=== PATIENT | male | born 1950 | race Caucasian/White ===

== ENCOUNTER 2020-07-16 08:12 | Day surgery (SDC) | payer OTHER, BC ==
[2020-07-12 15:32] LABS: Potassium 4.1 mmol/L (3.5-5.1)
[2020-07-12 15:36] LABS: Absolute Lymphocytes (CBC) 3.3 K/uL (0.7-4.9); Basophils % 0.5 % (0-1.3); Hematocrit 40.2 % (39.6-49.0); Lymphocytes % 36.8 % (15.3-44.8); MPV 8.6 fL (7.6-11.3); RBC Red Blood Cell Count 4.49 M/uL (4.33-5.43)
[2020-07-12 15:40] LABS: Protime INR 0.97
--- NOTE | 2020-07-12 15:57 | RAD REPORT ---
EXAM DESCRIPTION: RAD - Chest Pa And Lat (2 Views) - 07/12/2020 3:20 pm CLINICAL HISTORY: PREOP, pending cardiac catheterization COMPARISON: None TECHNIQUE: Frontal and lateral views of the chest were obtained. FINDINGS: The lungs are clear of focal abnormality. Interstitial markings are mildly prominent damaso eved be baseline. Heart size is normal and central vasculature is within normal limits. No pleural e ffusion or pneumothorax seen. No acute bony finding noted. No aortic abnormality. IMPRESSION: No acute cardiopulmonary process.
--- NOTE | 2020-07-13 15:03 | EKG ---
Test Date: 2020-07-12 Test Time: 14:00:26 Systems Admin: MONIQUE MEASUREMENT RESULTS: Intervals: Rate: 68 IN: 184 QRSD: 98 QT: 406 QTc: 431 [place]: P: 43 IN: 184 QRS: -37 T: 27 INTERPRETIVE STATEMENTS: Sinus rhythm with occasional premature ventricular complexes Left axis deviation Abnormal ECG No previous ECG available for comparison Electronically Signed On 07-13-20 15:01:55 CDT by Alex Buckner
[2020-07-16] MEDS ORDERED: NA CHLORIDE 0.9% 500 ML ONE (08:37)
[2020-07-16 08:53] VITALS: BP 144/83; TEMP 96.1; O2SAT 98
== END 2020-07-16 10:30 | disposition home or self-care (01) ==
LOC: CCL 08:12
DX: I20.0 Unstable angina (principal); Z53.8 Procedure and treatment not carried out for other reasons; Z20.822 Contact with and (suspected) exposure to COVID-19
CPT/HCPCS: 93005; 85025; 80048; 36415; 85610; 85730; 71046; U0003; J7040

== ENCOUNTER 2020-07-26 06:15 | Day surgery (SDC) | payer OTHER, BC ==
[2020-07-26] MEDS ORDERED: LIDOCAINE 1% 20 ML MDV ONE (07:00)
[2020-07-26] MEDS ORDERED: HEPA 1000U/500MLS 1,000 UNIT/500 ML BAG IV ONE (07:00)
[2020-07-26] MEDS ORDERED: FENTANYL CITR 100 MCG/2 ML ONE (07:39)
[2020-07-26] MEDS ORDERED: MIDAZOLAM HCL 2 MG/2 ML INJ ONE (07:39)
[2020-07-26] MEDS ORDERED: HEPARIN 5000 UNIT/ML 1 ML VIAL ONE (07:39)
[2020-07-26] MEDS ORDERED: ATROPINE SULF 1 MG/10 ML SYR IV ONE (07:40)
[2020-07-26] MEDS ORDERED: NA CHLORIDE 0.9% 0 ML ONE (07:40)
[2020-07-26 10:01] VITALS: BP 151/82; TEMP 97.1; O2SAT 97
--- NOTE | 2020-07-26 18:30 | OP ---
Surgeon: Alex Buckner MD Precision Lens Technician: Mr. Agustin Smith. The patient will remain in the hospital for 2 hours of bedrest. I will discharge him and I will make followup arrangement after the CD is reviewed. Procedure Performed: Admitted to my service as an outpatient to the lab clerk for heart catheterizati on. Indication: Unstable angina. Mr. Rowell is a 69-year-old male with history of stent 17 years ago in the LAD, hypertension, dyslipidemia, who came in with chest pain to the office and had an abnormal st ress test in May 2020. Procedure In Detail: He was brought to the lab clerk today, prepped and draped in routine sterile fas hion. Given Versed and fentanyl for sedation. Using the standard Seldinger technique, we put a 6-Fr ench sheath in the right common femoral artery after 10 mL of Xylocaine. Angiography there was dago l. He underwent a [employer] to close the case. Kirk catheter left and right were used to do the diagnostic catheterization. He had a normal right coronary artery, was small and nondominant. The c ircumflex was normal. He was very left dominant. He had an 80% to 90% ostial LAD stenosis that was looked very hazy and calcified. Stent in the LAD proximal was patent. No other complications. Blood Loss: 5 mL. Anesthesia: Total conscious sedation was 45 minutes. Postoperative Diagnosis: Severe coronary artery disease. Plan: Plan is to review the film with Cardiovascular Surgery at [facility] in [place] for possible MOE A to the LAD. BILLIE/MARÍA Voice ID: [id number] Report ID: [id number]
== END 2020-07-26 10:15 | disposition home or self-care (01) ==
LOC: CCL 06:15
DX: I25.110 Atherosclerotic heart disease of native coronary artery with unstable angina pectoris (principal); I42.9 Cardiomyopathy, unspecified; I65.23 Occlusion and stenosis of bilateral carotid arteries; I10 Essential (primary) hypertension; I25.2 Old myocardial infarction; E78.2 Mixed hyperlipidemia; K21.9 Gastro-esophageal reflux disease without esophagitis; G45.9 Transient cerebral ischemic attack, unspecified; Z95.5 Presence of coronary angioplasty implant and graft; Z87.891 Personal history of nicotine dependence
CPT/HCPCS: 93454; C1893; J2250; J3010; J1644; J0583

== ENCOUNTER 2022-06-24 06:26 | Day surgery (SDC) | payer OTHER, BC ==
--- NOTE | 2022-06-20 14:07 | RAD REPORT ---
EXAM DESCRIPTION: Clare Montalvo And Noelle (2 Views)06/20/2022 1:56 pm CLINICAL HISTORY: Preop for cardiac catheterization COMPARISON: 2020 FINDINGS: The lungs appear clear of acute infiltrate. The heart is normal size Postsurgical changes involve the chest IMPRESSION: No acute abnormalities displayed
[2022-06-20 14:31] LABS: Absolute Lymphocytes (CBC) 3.5 K/uL (0.7-4.9); Hematocrit 41.6 % (39.6-49.0); Lymphocytes % 40.9 % (15.3-44.8); MCV 91.9 fL (80-100); MPV 9.2 fL (7.6-11.3); RBC Red Blood Cell Count 4.53 M/uL (4.33-5.43)
[2022-06-20 14:34] LABS: Potassium 3.8 mmol/L (3.5-5.1)
[2022-06-20 14:37] LABS: Protime INR 1.02
--- NOTE | 2022-06-23 16:48 | EKG ---
Test Date: 2022-06-20 Test Time: 13:41:19 Setup Operator: KATELIN MEASUREMENT RESULTS: Intervals: Rate: 58 SD: 178 QRSD: 102 QT: 434 QTc: 426 [place]: P: 56 SD: 178 QRS: -10 T: 47 INTERPRETIVE STATEMENTS: Sinus bradycardia Otherwise normal ECG Compared to ECG 07/12/2020 14:00:26 Sinus rhythm no longer present Ventricular premature complex(es) no longer present Left-axis deviation no longer present Electronically Signed On 06-23-22 16:40:09 TIRE MECHANIC by Marvin Christopher
[~2022-06-24 06:26] MED LIST: ATROPINE SULF 1 MG/10 ML SYR IV ONE; FENTANYL CITR 100 MCG/2 ML ONE; HEPA 1000U/500MLS 2,000 UNIT/1,000 ML BAG IV ONE; HEPARIN 10,000 UNIT/10 ML VIAL IV ONE; LIDOCAINE 1% 20 ML MDV ONE; MIDAZOLAM HCL 2 MG/2 ML INJ ONE
[2022-06-24] MEDS ORDERED: NA CHLORIDE 0.9% 500 ML ONE (06:30)
[2022-06-24 09:36] VITALS: BP 134/74; O2SAT 100
--- NOTE | 2022-06-24 13:07 | OP ---
Date of Procedure: 06/24/2022 Surgeon: GIANNI MORALEZ Procedures Performed: 1.Selective coronary angiogram with bypass graft study. 2.Left heart catheterization. Indication: Abnormal stress test. Access: Right femoral artery 6-Cambodian closed with 6-Cambodian Angio-Seal. Complications: None. Bleeding: Less than 20 mL. Anesthesia: Total sedation time was 30 minutes. Used fentanyl and Versed. Description Of Procedure: After risks, benefits, alternatives were explained, the patient agreed to the procedure and signed informed consent. The patient was brought into the cardiac catheterization laboratory, prepped and draped in the usual sterile fashion. Then, I accessed the right femoral tina ry using micropuncture kit, fluoroscopy, and ultrasound guidance, placed a 6-Cambodian [place] sheath a nd took 6-Cambodian JL4 catheter into the aortic root, engaged left main, took standard views and then e xchanged over J-wire to a 6-Cambodian JR4 catheter, engaged the RCA and SVG to the left circumflex and t he RINALDI to LAD and took standard views. Catheter then was advanced over the wire into the LV, measur ed the LVEDP and pullback did not record any gradient. Then, I removed the catheter and sheath, plac ed 6-Cambodian Angio-Seal for closure with good hemostasis. Findings: 1.Left main; diffuse 50% to 60% stenosis. 2.LAD; has ostial 80% and then patent stent, then diffuse 20% to 30% stenosis. 3.Left circumflex; large and dominant with mid 60% stenosis and then distally diffuse 30% to 40% stephanie nosis. 4.RCA; small, nondominant with luminal irregularities. Graft Study: 1.Patent SVG to left circumflex. 2.Patent RINALDI to LAD. 3.Elevated LVEDP at 15 mmHg. Conclusion: 1.Severe tanana coronary artery disease with patent RINALDI to LAD and SVG to the left circumflex and R CA small and nondominant. 2.Elevated LVEDP. Recommendations: Continue medical management and diuretics. SR/MODL Voice ID: [id number] Report ID: [id number]
== END 2022-06-24 09:37 | disposition home or self-care (01) ==
LOC: CCL 06:26
PROVIDERS: ATTEND Internal Medicine
DX: I25.10 Atherosclerotic heart disease of native coronary artery without angina pectoris (principal); I10 Essential (primary) hypertension; E78.5 Hyperlipidemia, unspecified; I25.2 Old myocardial infarction; I65.23 Occlusion and stenosis of bilateral carotid arteries; K21.9 Gastro-esophageal reflux disease without esophagitis; Z95.1 Presence of aortocoronary bypass graft; Z95.5 Presence of coronary angioplasty implant and graft; Z87.891 Personal history of nicotine dependence; Z79.82 Long term (current) use of aspirin; Z79.899 Other long term (current) drug therapy
CPT/HCPCS: 93005; 85025; 80048; 36415; 85610; 85730; 71046; 93459; 76937; C1893; C1760; Q9967; G0269; J2001; J2250; J3010; J7040; J0461

== ENCOUNTER 2024-02-13 13:26 | Emergency (ER) | payer OTHER, BC ==
--- OUTSIDE RECORDS SUMMARY | 2024-02-13 13:29 | XMS REPORT | Clinical Summary ---
Author Name Unknown Organization [facility] Address [address] [place] [address] Care Team Providers Care Robotics Software Engineer Name Role Phone Bettie Giang MD Unavailable [phone] Rachell Arreguin Primary Care Provider [phone] Chris Blackwood MD Unavailable [phone] Allergies No known active allergies Medications Medication Sig Dispensed Refills Start Date End Date Status acetaminophen (TYLENOL) 325 mg tablet Take 2 tablets (650 mg) by mouth every 6 (six) hours as needed for mild pain. 02/04/2021 Active amLODIPine (NORVASC) 5 mg tabletIndications :hypertension Take 1 tablet (5 mg) by mouth daily. 01/22/2023 Active aspirin 81 mg EC tablet Take 1 tablet (81 mg) by mouth daily. Active cholecalciferol, vitamin D3, (VITAMIN D3) 2,000 units tab tablet Take 1 tablet (2,000 Units) by mouth daily. Active clobetasol (TEMOVATE) 0.05% cream Apply 1 application topically to affected area(s) as needed. 02/04/2021 Active glucosamine/condr oitin/kyfy735 (COSAMIN ASU ORAL) Take 1 capsule by mouth twice daily. 07/19/2022 Active losartan (COZAAR) 100 mg tablet Take 1 tablet (100 mg) by mouth daily. 12/28/2022 Active metoprolol succinate 50 mg CSpX Take 1 tablet by mouth daily. Active multivitamin (THERAGRAN) tablet Take 1 tablet by mouth daily. Active nystatin (MYCOSTATIN) 100,000 units/g cream Apply topically to affected area(s) as needed. Active omega 7-mrb-kzd-fish oil 1,000 mg (120 mg-180 mg) cap daily. Active omeprazole (PriLOSEC) 20 mg capsule every morning before breakfast. 12/26/2022 Active rosuvastatin (CRESTOR) 40 mg tablet Take 1 tablet (40 mg) by mouth at bedtime. 12/27/2022 Active traMADol (ULTRAM) 50 mg tablet Take 1 tablet (50 mg) by mouth every 6 (six) hours as needed. 02/04/2021 Active traZODone (DESYREL) 50 mg tablet Take 1 tablet (50 mg) by mouth at bedtime. 05/31/2020 Active coenzyme Q10 100 mg capsule Take 100 mg by mouth daily. Active zinc gluconate 50 mg tablet Take 1 tablet (50 mg) by mouth daily. Active aflibercept (EYLEA INTRAVITREAL) 1.25 mg by intravitreal route every 30 (thirty) days. Patient taking every 2 months. Next is 02/24/2023 Active omeprazole (PriLOSEC) 40 MG capsuleIndication s:Neuroendocrine tumor Take 1 capsule (40 mg) by mouth every morning before breakfast for 60 days. 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 Neuroendocrine tumor 02/02/2023 Overview: Added automatically from request for surgery [id number] Encounters Date Type Department Care Team Description 4 Orders Only [facility] - Surgical Oncology [address] [place] [address] Main [facility], 7th [place] [address] Jenn Regan APRN Neuroendocrine tumor (Primary Dx) 4 9:30 AM CDT Telemedicine Gastrointestina l Center - Surgical Oncology [facility]5 [facility], 7th Floor [address] [place], [place] [id number] Chris Blackwood MD Neuroendocrine tumor (Primary Dx); Carcinoid tumor, NOS of stomach, NOS 4 6:46 AM CDT - 4 11:59 PM CDT Hospital Encounter Main CT IMAGING [facility] [facility] Main Bldg, 3rd [place] [address] Jenn Regan APRN Carcinoid tumor, NOS of stomach, NOS Discharge Disposition: Home 4 6:31 AM CDT - 4 6:45 AM CDT Hospital Encounter Diagnostic [facility] [address] [place] [address] Main [facility], [place] [address] Jenn Regan, DRY HOUSE OPERATOR Carcinoid tumor, NOS of stomach, NOS Discharge Disposition: Home 4 Prep for Procedure Gastrointestina l Center - Gastroenterolog y, Hepatology & Nutrition [address] [place] [address] Main [facility], 7th [place] [address] Usama Nugent MD History of malignant carcinoid tumor of stomach (Primary Dx) 4 11:16 AM CDT Anesthesia Event Endoscopy Center [address] [place] [address] Main [facility], 5th [place] [address] Kamila Clark MD 4 11:15 AM CDT - 4 12:00 PM CDT Surgery Endoscopy Center [address] [place] [address] Main [facility], 5th [place] [address] Usama Nugent MD UPPER GASTROINTESTINAL ENDOSCOPY OF ESOPHAGUS, STOMACH, AND DUODENUM WITH BIOPSY 4 9:17 AM CDT - 4 12:49 PM CDT Hospital Encounter Endoscopy Center [address] [place] [address], 5th [place] [address] Usama Nugent MD Neuroendocrine tumor Discharge Disposition: Home 4 Travel 4 4:30 PM CDT POEM Appointments Perioperative Evaluation and Management Center [address] [place] [address] Main [facility], 6th [place] [address] Rachell Arreguin PA 4 11:59 PM CDT Anesthesia Event [facility] [address] [place] [address] Main [facility], 6th [place] [address] Lay Patel RN 4 9:00 AM VOLLEYBALL ASSISTANT COACH Consult Gastrointestina l Center - Surgical Oncology [address] [place] [address] Main [facility], 7th [place] [address] Chris Blackwood MD Carcinoid tumor, NOS of stomach, NOS 4 Travel 4 Telephone [facility]astrointestina l Center [address] [place] [address] Main [facility], 7th [place] [address] Laney Saavedra, RN 4 Telephone [facility]astrointestina [facility] Center [address] [place] [address] Main [facility], 7th [place] [address] Laney Saavedra, ELIAN 3 Orders Only Gastrointestina l Center - Gastroenterolog y, Hepatology & Nutrition [address] [place] [address] Main [facility], 7th [place] [address] Usama Nugent MD Carcinoid tumor, NOS of stomach, NOS (Primary Dx) 3 Prep for Procedure Gastrointestina l Center - Gastroenterolog y, Hepatology & Nutrition [address] [place] [address] Main [facility], 7th [place] [address] Usama Nugent MD History of malignant carcinoid tumor of stomach (Primary Dx) 3 7:39 AM VOLLEYBALL ASSISTANT COACH Anesthesia Event Endoscopy Center [address] [place] [address] Main [facility], 5th [place] [address] Belkis Ackerman MD 3 7:20 AM VOLLEYBALL ASSISTANT COACH - 3 9:20 AM VOLLEYBALL ASSISTANT COACH Surgery Endoscopy Center [address] [place] [address] Main [facility], 5th [place] [address] Usama Nugent MD FLEXIBLE ESOPHAGOGASTRODUODENOSCOPY WITH MUCOSAL RESECTION 3 6:17 AM VOLLEYBALL ASSISTANT COACH - 3 10:15 AM VOLLEYBALL ASSISTANT COACH Hospital Encounter Endoscopy Center [address] [place] [address] Main [facility], 5th [place] [address] Usama Nugent MD Neuroendocrine tumor (Primary Dx) Discharge Disposition: Home 3 Travel 3 4:00 PM VOLLEYBALL ASSISTANT COACH POEM Appointments [facility] [address] [place] [address], 6th [place] [address] Rachell Arreguin PA 3 11:59 PM VOLLEYBALL ASSISTANT COACH Anesthesia Event Perioperative [facility] Management [facility] [address] [place] [address], [facility] [place] [address] Kezia Martínez RN after 02/13/2023 Surgical History Surgery Date Site/Laterality Comments APPENDECTOMY 04/20/1975 COLONOSCOPY 06/02/2019 PROSTATE SURGERY 01/19/2008 CORONARY ARTERY BYPASS GRAFT 06/23/2003 KNEE ARTHROPLASTY 03/10/2005 UPPER GASTROINTESTINAL ENDOSCOPY 12/26/2022 SEPTOPLASTY OF NOSE ANGIOPLASTY DC EGD TRANSORAL ENDOSCOPIC MUCOSAL RESECTION 04/06/2023 N/A Procedure: FLEXIBLE ESOPHAGOGASTRODUODENOSCOPY WITH MUCOSAL RESECTION; Surgeon: Usama Nugent MD; Location: MAIN ENDOSCOPY; Service: GASTROENTEROLOGY DC EGD TRANSORAL BIOPSY SINGLE/MULTIPLE 09/25/2023 Esophagus/N/A Procedure: UPPER GASTROINTESTINAL ENDOSCOPY OF ESOPHAGUS, STOMACH, AND DUODENUM WITH BIOPSY; Surgeon: Usama Nugent MD; Location: MAIN ENDOSCOPY; Service: GASTROENTEROLOGY Medical History Medical History Date Comments Myocardial infarction 06/22/2004 Hyperlipidemia Eczema Malignant neoplasm of prostate 01/19/2008 Basal cell carcinoma of skin 04/20/2004 Central retinal vein occlusion - non-ischemic Disorder of coronary artery Hiatal hernia Family History Medical History Relation Name Comments Prostate cancer Father Alexandr Rowell Breast cancer Mother Ruthy Rowlel Lung cancer Mother Ruthy Rowell Relation Name Status Comments Father Alexandr Rowell Mother Ruthy Rowell Social History Tobacco Use Types Packs/Day Years Used Date Smoking Tobacco: Never Smokeless Tobacco: Never Alcohol Use Standard Drinks/Week Comments Never 0 (1 standard drink = 0.6 oz pur e alcohol) Sex and Gender Information Value Date Recorded Sex Assigned at Not on file Gender Identity Not on file Sexual Orientation Not on file Job Start Date Occupation Industry Not on file Not on file Not on file Obstetrics History Last Filed Vital Signs Vital Sign Reading Time Taken Comments Blood Pressure 136/73 09/25/2023 12:15 PM CDT Pulse 65 09/25/2023 12:15 PM CDT Temperature 36.2 C (97.2 F) 09/25/2023 12:10 PM C DT Respiratory Rate 16 09/25/2023 12:15 PM CDT Oxygen Saturation 95% 09/25/2023 12:20 PM CDT Inhaled Oxygen Concentration - - Weight 95.5 kg (210 lb 8.6 oz) 09/25/2023 10:07 AM CDT Height - - Body Mass Index 29.22 01/28/2023 11:26 AM CDT Plan of Treatment Upcoming Encounters Date Type Department Care Team (Latest Contact Info) Description 04/11/2024 6:45 AM VOLLEYBALL ASSISTANT COACH Appointment Diagnostic Laboratory Center [address] [place] [address], [place] [address] Jenn Regan APRN [address] [place] [phone] [email or web address] 04/11/2024 7:20 AM VOLLEYBALL ASSISTANT COACH Hospital Encounter Endoscopy Center [address] [place] [address], 5th [place] [address] Usama Nugent MD [address] [place] [phone] [email or web address] 04/11/2024 7:20 AM VOLLEYBALL ASSISTANT COACH - 04/11/2024 8:00 AM [facility] Surgery Endoscopy Center [address] [place] [address], 5th [place] [address] Usama Nugent MD [address] [place] [phone] [email or web address] UPPER GASTROINTESTINAL ENDOSCOPY OF ESOPHAGUS, STOMACH, AND DUODENUM WITH BIOPSY 04/26/2024 2:30 PM [facility] Telemedicine Gastrointestinal Center - Surgical Oncology [address] [place] [address], 7th [place] [address] Chris Blackwood MD [address] [place] [phone] [email or web address] Scheduled Procedures Name Priority Associated Diagnoses Date/Ti me UPPER GASTROINTESTINAL ENDOSCOPY OF ESOPHAGUS, STOMACH, AND DUODENUM WITH BIOPSY History of malignant carcinoid tumor of stomach 04/11/2024 7:20 AM VOLLEYBALL ASSISTANT COACH Health Maintenance Due Date Last Done Comments COVID-19 Vaccine ( season) 12/20/202310/2020, 05/27/2020 Influenza Vaccine (#1) 2023 01/04/2022, 2020 Pneumococcal Vaccine: 65+ Years Completed 2 Medical Devices Implanted Type Area Breaker Operator Device Identifier Shelf Expiration Date Model / Serial / Lot Implant-04/20/19 21 Implanted:04/2020 (Quantity not on file) Implant Left: Knee Stent-04/20/2003 Implanted:04/2003 (Quantity not on file) Stent Procedures Procedure Name Priority Date/Time Associated Diagnosis Comments CT CHEST ABDOMEN PELVIS W WO CONTRAST Routine 10/08/2023 10:35 AM CDT Carcinoid tumor, NOS of stomach, NOS .CBC Routine 10/08/2023 6:41 AM CDT Carcinoid tumor, NOS of stomach, NOS COMPREHENSIVE METABOLIC PANEL Routine 10/08/2023 6:41 AM CDT Carcinoid tumor, NOS of stomach, NOS COMPLETE BLOOD COUNT W/ DIFFERENTIAL Routine 10/08/2023 6:41 AM CDT Carcinoid tumor, NOS of stomach, NOS GASTRIN LEVEL Routine 10/08/2023 6:41 AM CDT Carcinoid tumor, NOS of stomach, NOS CHROMOGRANIN A Routine 10/08/2023 6:41 AM CDT Carcinoid tumor, NOS of stomach, NOS PATHOLOGY BIOPSY INTERPRETATION Routine 09/25/2023 11:29 AM CDT Neuroendocrine tumor DC EGD TRANSORAL BIOPSY SINGLE/MULTIPLE 09/25/2023 11:06 AM CDT Neuroendocrine tumor Special Needs GENERAL ASSEMBLER INSTALLER CALL COMPLETED 09/22/23TRIAGE RN JAMILA CALL 1--- LVM 09/10/23 PATHOLOGY BIOPSY INTERPRETATION Routine 04/06/2023 8:44 AM VOLLEYBALL ASSISTANT COACH Neuroendocrine tumor DC EGD TRANSORAL ENDOSCOPIC MUCOSAL RESECTION 04/06/2023 7:29 AM VOLLEYBALL ASSISTANT COACH Neuroendocrine tumor after 02/13/2023 Results * CT Chest Abdomen Pelvis with and without Contrast (10/08/2023 10:35 AM CDT) Anatomical Region Laterality Modality Abdomen, Pelvis, Chest Computed Tomography 10/08/2023 7:30 PM CDT Impressions 10/08/2023 8:05 PM CDT No gastric mass or definite metastatic disease identified in the chest, abdomen or pelvis. Calcified right lower lobe pulmonary nodules associated with calcified subcarinal node, likely sequela of granulomatous infection. Several nonspecific punctate pulmonary nodules are probably benign and can be followed. ACTIONABLE ITEMS/RECOMMENDATIONS*: None. *An Actionable Finding is a finding that may be unrelated to the original reason for imaging but potentially actionable, meaning further investigation may be necessary. The Actionable Findings Vigilance Unit (AFVU) assists medical providers with responding to additional radiologic findings that are unexpected and potentially actionable. Narrative 10/08/2023 8:05 PM CDT FULL RESULT: Examination: CT CHEST ABDOMEN PELVIS W WO CONTRAST on 10/08/2023 10:35 AM. Clinical History: Carcinoid tumor, NOS of stomach, NOS. Indication: Gastric neuroendocrine tumor. Comparison: 01/20/2024. Technique: CT CHEST ABDOMEN PELVIS W WO CONTRAST. Findings: CHEST: Lungs and Pleura: No suspicious pulmonary nodule. Several nonspecific sub-5 mm pulmonary nodules are identified in the bilateral upper and left lower lung lobes such as in series 18 image 48, 51, 55, 59, and 87. Multiple calcified pulmonary nodules are identified in the right lower lobe such as in the image 121 of series 18 measuring 1.5 cm, favored to represent granulomatous infection. This is associated with a partially calcified subcarinal node in image 64 series 16 measuring 0.6 x 2.1 cm. No consolidation. No pleural effusion. Cardiomediastinum: The heart is normal in size. No pericardial effusion. Lymph nodes: No lymphadenopathy. ABDOMEN AND PELVIS: Hepatobiliary: No suspicious hepatic lesion. No biliary dilatation. No cholecystitis. Spleen: No splenomegaly. Pancreas: No mass or ductal dilatation. Adrenal Glands: No mass. Kidneys, Ureters, Bladder: No hydronephrosis. No suspicious renal lesion. No bladder mass. Gastrointestinal Tract: No obstruction. No gastric mass is identified. Metallic artifact in the soft tissues adjacent to the terminal ileum in the right lower quadrant may be related to prior surgery. An area of fat necrosis is identified in the ileocolic mesentery in image 132 series 12. Pelvic Organs: No pelvic mass. Prostatectomy. Peritoneum/Retroperitoneum: No ascites. Lymph Nodes: No lymphadenopathy. MUSCULOSKELETAL: No suspicious skeletal lesion. Procedure Note Jose Corado MD - 10/08/2023 FULL RESULT: Examination: CT CHEST ABDOMEN PELVIS W WO CONTRAST on 10/08/2023 10:35AM. Clinical History: Carcinoid tumor, NOS of stomach, NOS. Indication: Gastric neuroendocrine tumor. Comparison: 01/20/2024. Technique: CT CHEST ABDOMEN PELVIS W WO CONTRAST. Findings: CHEST: Lungs and Pleura: No suspicious pulmonary nodule. Several nonspecificsub-5 mm pulmonary nodules are identified in the bilateral upper and leftlower lung lobes such as in series 18 image 48, 51, 55, 59, and 87. Multiple calcified pulmonary nodules are identified in the right lowerlobe such as in the image 121 of series 18 measuring 1.5 cm, favored torepresent granulomatous infection. This is associated with a partiallycalcified subcarinal node in image 64 series 16 measuring 0.6 x 2.1 cm. Noconsolidation. No pleural effusion. Cardiomediastinum: The heart is normal in size. No pericardial effusion. Lymph nodes: No lymphadenopathy. ABDOMEN AND PELVIS: Hepatobiliary: No suspicious hepatic lesion. No biliary dilatation. Nocholecystitis. Spleen: No splenomegaly. Pancreas: No mass or ductal dilatation. Adrenal Glands: No mass. Kidneys, Ureters, Bladder: No hydronephrosis. No suspicious renal lesion. No bladder mass. Gastrointestinal Tract: No obstruction. No gastric mass is identified.Metallic artifact in the soft tissues adjacent to the terminal ileum inthe right lower quadrant may be related to prior surgery. An area of fatnecrosis is identified in the ileocolic mesentery in image 132 [email or web address]. Pelvic Organs: No pelvic mass. Prostatectomy. Peritoneum/Retroperitoneum: No ascites. Lymph Nodes: No lymphadenopathy. MUSCULOSKELETAL: No suspicious skeletal lesion. IMPRESSION: No gastric mass or definite metastatic disease identified in the chest,abdomen or pelvis. Calcified right lower lobe pulmonary nodules associated with calcifiedsubcarinal node, likely sequela of granulomatous infection. Several nonspecific punctate pulmonary nodules are probably benign and canbe followed. ACTIONABLE ITEMS/RECOMMENDATIONS*: None. *An Actionable Finding is a finding that may be unrelated to the originalreason for imaging but potentially actionable, meaning furtherinvestigation may be necessary. The Actionable Findings Vigilance Unit(AFVU) assists medical providers with responding to additional radiologicfindings that are unexpected and potentially actionable. Jenn To DRY HOUSE OPERATOR IM CT ORDERABLES * (ABNORMAL) .CBC (10/08/2023 6:41 AM CDT) White Blood Cell 8.4 4.1 - 10.5 K/uL 10/08/2023 6:48 AM CDT [facility] Red Blood Cell 4.65 4.30 - 6.04 M/uL 10/08/2023 6:48 AM CDT [facility] Hemoglobin 14.9 13.3 - 17.4 g/dL 10/08/2023 6:48 AM CDT [facility] Hematocrit 43.2 39.5 - 51.8 % 10/08/2023 6:48 AM CDT [facility] Mean Cell Volume 93 82 - 99 fL 10/08/2023 6:48 AM CDT [facility] Mean Cell Hemoglobin 32.0 26.6 - 33.2 pg 10/08/2023 6:48 AM CDT [facility] Mean Cell Hemoglobin Concentration 34.5 31.1 - 35.2 g/dL 10/08/2023 6:48 AM CDT [facility] RDW-SD 43.9 37.5 - 49.7 fL 10/08/2023 6:48 AM CDT [facility] Red Cell Diameter Width 12.8 11.6 - 15.5 % 10/08/2023 6:48 AM CDT [facility] Platelet 171 160 - 397 K/uL 10/08/2023 6:48 AM CDT [facility] Mean Platelet Volume 10.6 9.1 - 12.6 fL 10/08/2023 6:48 AM CDT [facility] INRBC 0.0 0.0 - 0.1 /100 WBC 10/08/2023 6:48 AM CDT [facility] Comment: The INRBC (instrument NRBC) value reflects the enumeration of nucleated red blood cells contained in a 200uL sample of whole blood analyzed by the instrument. This value may differ from the NRBC value reported in a manual differential, which is based on a 100 cell differential. Neutrophil % 44.3 43.2 - 72.7 % 10/08/2023 6:48 AM CDT [facility] Lymphocyte % 42.8 16.8 - 46.2 % 10/08/2023 6:48 AM CDT [facility] Monocyte % 7.8 5.1 - 12.5 % 10/08/2023 6:48 AM CDT [facility] Eosinophil % 4.4 0.4 - 6.3 % 10/08/2023 6:48 AM CDT [facility] Basophil % 0.5 0.2 - 1.4 % 10/08/2023 6:48 AM CDT [facility] IGRE % 0.2 0.1 - 1.5 % 10/08/2023 6:48 AM CDT [facility] Comment:The IGRE% includes M etamyelocytes, Myelocytes and Promyelocytes. Neutrophil Abs 3.73 1.95 - 7.25 K/uL 10/08/2023 6:48 AM CDT [facility] Lymphocyte Abs 3.60(H) 1.01 - 3.24 K/uL 10/08/2023 6:48 AM CDT [facility] Monocyte Abs 0.66 0.24 - 0.85 K/uL 10/08/2023 6:48 AM CDT [facility] Eosinophil Abs 0.37 0.02 - 0.50 K/uL 10/08/2023 6:48 AM CDT [facility] Basophil Abs 0.04 0.02 - 0.09 K/uL 10/08/2023 6:48 AM CDT [facility] IG Abs 0.02 0.01 - 0.12 K/uL 10/08/2023 6:48 AM CDT [facility] Blood Peripheral blood specimen / Unknown Venipuncture / Unknown 10/08/2023 6:41 AM CDT 10/08/2023 6:43 AM CDT Jenn To ZAINAB LAB BLOOD ORDERABLES [facility] Unless otherwise noted, all lab tests performed by: Division of Pathology and Laboratory Medicine [facility] [place] [address] * (ABNORMAL) Comprehensive Metabolic Panel (10/08/2023 6:41 AM CDT) Bilirubin Total 0.4 0.0 - 1.2 mg/dL 10/08/2023 7:20 AM CDT [facility] Comment:Indocyanine Green (I CG) may cause falsely elevated bilirubin results. Total and direct bilirubin must not be measured from samples containing indocyanine green. False elevation of total bilirubin can be seen in patients with IgG concentrations above 28 g/L. eGFR 65 >=60 mL/min/1. 73 sq. m 10/08/2023 7:20 AM CDT [facility] Comment: The eGFRcr is calculated with the 2020 CKD-EPI creatinine equation using creatinine, patient's age, and sex for adults 18 years of age and older. Other factors, especially muscle mass, may affect accuracy and need to be considered. According to the Kidney Disease: Improving Global Outcomes (KDIGO) CKD Work Group 2012 Clinical Practice Guideline, chronic kidney disease (CKD) is defined as the abnormalities of kidney structure or function, present for more than 3 months, with implications for health. CKD should be classified by cause, GFR category, and albuminuria category. KDIGO guidelines provide the following GFR categories. Stage / Description / GFR mL/min/1.73 m2: G1* / Normal or high / >= 90 G2* / Mildly decreased / 60-89 G3a / Mildly to moderately decreased / 45-59 G3b / Moderately to severely decreased / 30-44 G4 / Severely decreased / 15-29 G5 / Kidney failure / <15 *In the absence of evidence of kidney damage, neither G1 nor G2 fulfill criteria for CKD. Tot Protein 7.1 6.4 - 8.3 gm/dL 10/08/2023 7:20 AM [facility] Calcium Level Total 9.9 8.2 - 10.2 mg/dL 10/08/2023 7:20 AM [facility] Alkaline Phosphatase 81 40 - 129 U/L 10/08/2023 7:20 AM [facility] Albumin Level 4.6 3.5 - 5.2 gm/dL 10/08/2023 7:20 AM [facility] AST 32 <=40 U/L 10/08/2023 7:20 AM [facility] ALT 35 <=41 U/L 10/08/2023 7:20 AM [facility] Sodium Level 141 136 - 145 mmol/L 10/08/2023 7:20 AM [facility] Potassium Level 4.9(H) 3.4 - 4.5 mmol/L 10/08/2023 7:20 AM [facility] Chloride 104 98 - 107 mmol/L 10/08/2023 7:20 AM [facility] CO2 28 22 - 29 mmol/L 10/08/2023 7:20 AM [facility] Anion Gap 9 4 - 14 mmol/L 10/08/2023 7:20 AM [facility] Creatinine 1.18(H) 0.67 - 1.17 mg/dL 10/08/2023 7:20 AM [facility] BUN 16 6 - 23 mg/dL 10/08/2023 7:20 AM [facility] Glucose Level 105(H) 70 - 99 mg/dL 10/08/2023 7:20 AM [facility] Comment: Effective 11/14/15, the glucose reference intervals have been updated based on [place] [employer] guidelines (Standards of Medical Care in Diabetes 2016. Diabetes Care 2016; 39: S13-S22). Fasting blood glucose: Normal: 70-99 mg/dL Impaired fasting glucose (increased risk for diabetes or pre-diabetes): 100-125 mg/dL Diabetes mellitus: >/=126 mg/dL Random blood glucose: Normal: 70-199 mg/dL Note: Random glucose >100 mg/dL is associated with increased risk for diabetes. Blood Peripheral blood specimen / Unknown Venipuncture / Unknown 10/08/2023 6:41 AM CDT 10/08/2023 6:43 AM CDT Jenn To ZAINAB LAB BLOOD ORDERABLES [facility] Unless otherwise noted, all lab tests performed by: Division of Pathology and Laboratory Medicine [address] [place] [phone] * (ABNORMAL) Chromogranin A (10/08/2023 6:41 AM CDT) Pathologist [facility] Chromogranin A-[place] 1727(H) <93 ng/mL 10/09/2023 10:39 AM CDT [facility] Comment: Impaired renal or hepatic function or treatment with proton pump inhibitors may result in artifactual elevations of Chromogranin A. ADDITIONAL INFORMATION The testing method is a homogeneous time-resolved immunofluorescent assay manufactured by [employer] and performed on the [employer]act Plus. Values obtained with different assay methods or kits may be different and cannot be used interchangeably. Test results cannot be interpreted as absolute evidence for the presence or absence of malignant disease. In some immunoassays, the presence of unusually high concentrations of analyte may result in a high-dose "hook" effect. This may result in a lower or even normal measured analyte concentration. If the reported result is inconsistent with the clinical presentation, the laboratory should be alerted for troubleshooting. For diagnostic purposes, these immunoassay results should always be assessed in conjunction with the patients medical history, clinical examination and other findings. Test Performed by: [address] [address] Regional Forester: Kathryn Short Ph.D.; CLIA# [id number] Blood Peripheral blood specimen / Unknown Venipuncture / Unknown 10/08/2023 6:41 AM CDT 10/08/2023 6:43 AM CDT Jenn To [employer] LAB BLOOD ORDERABLES NOEL DELAROSA * (ABNORMAL) Gastrin Level (10/08/2023 6:41 AM CDT) Gastrin-Belpre 164(H) pg/mL 10/10/2023 10:21 AM CDT NOEL DELAROSA Comment: REFERENCE VALUE <100 Reference ranges valid for >= 8 hour fast. Test Performed by: [facility] [place] [address] Regional Forester: Kathryn Short Ph.D.; CLIA# [id number] Blood Peripheral blood specimen / Unknown Venipuncture / Unknown 10/08/2023 6:41 AM CDT 10/08/2023 6:43 AM CDT Jenn To [facility] LAB BLOOD ORDERABLES [facility] SHAHRZAD DELAROSA * Pathology Biopsy Interpretation (09/25/2023 11:29 AM CDT) Only the most recent of2 resultswithin the time period is included. Pathologist [facility] Submitted Clinical History Neuroendocrine tumor [D3A.8] 09/29/2023 9:17 AM CDT [facility] Diagnosis A: Stomach, scar, biopsy: Oxyntic mucosa with focal atrophy, lamina propria fibrosis, and reactive foveolar changes. No intestinal metaplasia identified. No Helicobacter organisms identified. No neoplasm identified. B: Stomach, antrum, random, biopsy: Antral and transitional mucosa with no significant pathologic changes. C: Stomach, angularis, biopsy: Oxyntic mucosa with focal lamina propria fibrosis. No intestinal metaplasia identified. No Helicobacter organisms identified. D: Stomach, body, lesser curve, biopsy: Oxyntic mucosa with lamina propria fibrosis. No intestinal metaplasia identified. No Helicobacter organisms identified. E: Stomach, body, greater curve, biopsy: Oxyntic mucosa with no significant pathologic changes. F: Stomach, fundus and cardia, biopsy: Cardia mucosa with focal lamina propria fibrosis and reactive foveolar hyperplasia. Oxyntic/fundic mucosa with no significant pathologic changes. No intestinal metaplasia identified. No Helicobacter organisms identified. G: Stomach, polyps, biopsy: Fundic gland polyp(s). 09/29/2023 9:17 AM CDT [facility] Gross Description A: Stomach, gastric scar: Multiple webster-red pieces of tissue measuring 0.7 x 0.5 x 0.1 cm in aggregate, entirely submitted in A1. GM B: Stomach, random antrum: Multiple webster-pink pieces of tissue measuring 0.7 x 0.5 x 0.1 cm in aggregate, entirely submitted in B1. GM C: Stomach, angularis: Multiple webster-pink pieces of tissue measuring 0.6 x 0.5 x 0.1 cm in aggregate, entirely submitted in C1. GM D: Stomach, lesser curve gastric body: Multiple webster-pink pieces of tissue measuring 0.9 x 0.5 x 0.1 cm in aggregate, entirely submitted in D1. GM E: Stomach, gastric body greater curve: Multiple webster-yellow pieces of tissue measuring 0.8 x 0.4 x 0.1 cm in aggregate, entirely submitted in E1. GM F: Stomach, fundus and cardia: Four webster-white pieces of tissue ranging from 0.1 to 0.3 cm, entirely submitted in F1. GM G: Stomach, gastric polyps: Three pink-red pieces of tissue ranging from 0.2 to 0.4 cm, entirely submitted in G1. GM 09/29/2023 9:17 AM T [facility] Biomarker Block(s) N/A 09/29/2023 9:17 AM T [facility] Disclaimer "Some tests reported here may have been developed and performance characteristics determined by [facility]. These tests have not been specifically cleared or approved by the U.S. Food and Drug Administration. If applicable, controls were reviewed and showed appropriate reactivity." 09/29/2023 9:17 AM T [facility] Tissue (Stomach) 09/25/2023 11:29 AM CDT 09/25/2023 12:51 PM CDT Tissue specimen (specimen) (Stomach) 09/25/2023 11:32 AM CDT 09/25/2023 12:51 PM CDT Tissue specimen (specimen) (Stomach) 09/25/2023 11:36 AM CDT 09/25/2023 12:51 PM CDT Tissue specimen (specimen) (Stomach) 09/25/2023 11:37 AM CDT 09/25/2023 12:51 PM CDT Tissue specimen (specimen) (Stomach) 09/25/2023 11:40 AM CDT 09/25/2023 12:51 PM CDT Tissue specimen (specimen) (Stomach) 09/25/2023 11:41 AM CDT 09/25/2023 12:51 PM CDT Tissue specimen (specimen) (Stomach) 09/25/2023 11:43 AM CDT 09/25/2023 12:51 PM CDT Usama Nugent MD LAB PATHOLOGY ORDERA [facility] Organization Address City/State/[facility] Co de Phone Number [facility] [id number] [place] [address], after 02/13/2023 Care Teams Robotics Software Engineer Relationship Specialty Start Date End Date Bettie Giang MD [address] [facility] [address] [place], [place] [id number] [email or web address] PCP - External Follow Up A Cardiology 01/20/23 Rachell Arreguin PA [facility] [place], [place] [id number] [email or web address] PCP - General Gastrointestinal Medical Oncology 01/24/23 Chris Blackwood MD [address] [place] [address] [email or web address] Consulting Physician Surgical Oncology 06/16/23
[2024-02-13] MEDS ORDERED: TDAP (DIPHTH,PERTUSS(ACELL),TET VAC) 0.5 ML VIAL IMVAC ONE (14:02)
--- NOTE | 2024-02-13 15:41 | RAD REPORT ---
EXAM: XR Hand Left 3 View HISTORY: [facility] MAIN Swelling;Pain Bed Name: IW5 COMPARISON: None TECHNIQUE: 3 radiographic views of the LEFT hand submitted. FINDINGS: Comminuted and displaced fracture at the tuft of the fifth digit distal phalanx. Mild volar displacement and angulation of the distal fragment. No dislocation. Mild degenerative changes at the thumb base. Joint alignment is maintained. No soft tissue swelling is seen.. Mild degenerative ch anges at the thumb base. IMPRESSION: Comminuted and displaced distal phalanx fifth digit tuft fracture as above.
--- NOTE | 2024-02-13 15:53 | EDPHYS ---
Physician Documentation [facility] Name: Sam Rowell Age: 73 yrs Sex: Male : 1950 Arrival Date: 02/13/2024 Time: 13:26 Bed 10 Private MD: ED George Santana HPI: 02/12 14:14 This 73 yrs old Male presents to ER via Ambulatory with complaints of left dr5 pinky injury. 14:14 Pt is a 73 year old male with left fifth (pinky) finger injury that occurred 3 weeks dr5 ago. Unknown last TDAP.. Historical: - Allergies: 13:44 No Known Allergies; aa5 - PMHx: 13:44 Hyperlipidemia; Hypertension; Myocardial infarction; Stomach Cancer; Carcinoma; aa5 Prostate Cancer; - PSHx: 13:44 carcinoma removed; prostectomy; heart stents; hernia repair; Appendectomy; septo aa5 plasty; Tonsillectomy; Left knee replacement; Coronary Double Bypass; - Immunization history:: Adult Immunizations unknown. - Infectious Disease History:: Denies. - Social history:: Smoking status: Patient denies any tobacco usage or history of. ROS: 14:14 Constitutional: as per hpi dr5 Exam: 14:14 Constitutional: This is a well developed, well nourished patient who is awake, alert, dr5 and in no acute distress. Eyes: Pupils equal round and reactive to light, extra-ocular motions intact. Lids and lashes normal. Conjunctiva and sclera are non-icteric and not injected. Cornea within normal limits. Periorbital areas with no swelling, redness, or edema. Chest/axilla: Normal chest wall appearance and motion. Nontender with no deformity. No lesions are appreciated. Cardiovascular: Regular rate and rhythm with a normal S1 and S2. Normal PMI, no JVD. No pulse deficits. Abdomen/GI: Soft, non-tender, non-distended Neuro: Awake and alert, GCS 15, oriented to person, place, time, and situation. Cranial nerves II-XII grossly intact. Motor strength 5/5 in all extremities. Sensory grossly intact. Cerebellar exam normal. Normal gait. 14:14 Skin: cellulitis, that is minimal, on the dorsal aspect of distal phalanx of left little finger, Vital Signs: 13:43 BP 133 / 78; Pulse 66; Resp 18 S; Temp 97.8(TE); Pulse Ox 99% on R/A; Weight 96.16 kg aa5 (R); Height 6 ft. 0 in. (R); 13:43 Body Mass Index 28.75 (96.16 kg, 182.88 cm) aa5 MDM: 13:47 Medical Screening Exam initiated dr5 14:15 Differential diagnosis: viral Infection, bacterial infection, Paronychia. Data dr5 reviewed: vital signs, nurses notes. Consideration of Admission/Observation Escalation of care including admission/observation considered. Considered admission if patient had rapidly developing rash, fever, or inability to move pinky finger.. I considered the following discharge prescriptions or medication management in the emergency department Medications were administered in the Emergency Department. See MAR. Care significantly affected by the following chronic conditions: Hypertension, Cancer, Hyperlipidemia. Care significantly affected by the following Social Determinants of Health: Poor access to healthcare and/or lack of insurance, Poor access to transportation. Counseling: I had a detailed discussion with the patient and/or guardian regarding the historical points, exam findings, and any diagnostic results supporting the discharge/admit diagnosis, the presence of at least one elevated blood pressure reading (>120/80) during this emergency department visit, radiology results, the need for outpatient follow up, for definitive care, a family practitioner, to return to the emergency department if symptoms worsen or persist or if there are any questions or concerns that arise at home. Admission orders: after a detailed discussion of the patient's condition and case, the admit orders are written by me. ED course: Developing infection noted to end of left 5th digit. Will cover with abx. TDAP given in ER. X-ray completed with no fracture.. 16:12 ED course: Pt found to have comminuted fracture of fifth distal phalanx. Finger splint dr5 applied. Keflex given for cellulitis around area. No open wound noted. Recommended patient follow up with orthopedics on Thursday for further management. All questions answered.. 02/12 13:47 Order name: Hand Left 3 View XRAY; Complete Time: 15:41 dr5 02/12 15:46 Order name: Splint - Finger; Complete Time: 16:08 dr5 Administered Medications: 14:15 Drug: Boostrix Tdap IM 0.5 ml IM once; as a single dose {Note: 7445J.} Route: IM; Site: ss right deltoid; 16:08 Follow up: Response: No adverse reaction ss Disposition Summary: 02/13/24 15:52 Discharge Ordered Notes: Location: Home dr5 Condition: Stable dr5 Diagnosis - Displaced fracture of distal phalanx of finger dr5 Followup: dr5 - With: Emergency Department - When: As needed - Reason: Worsening of condition Followup: dr5 - With: Private Physician - When: 1 - 2 days - Reason: Recheck today's complaints, Continuance of care, Re-evaluation by your physician Discharge Instructions: - Discharge Summary Sheet dr5 - Finger Fracture, Adult dr5 Forms: - Medication Reconciliation Form dr5 - Antibiotic Education dr5 - Patient Portal Instructions dr5 - Leadership Thank You Letter dr5 Prescriptions: - Cephalexin 500 mg Oral Capsule - take 1 capsule ORAL route every 6 hours for 10 days; 40 capsule; Refills: 0, dr5 Product Selection Permitted Signatures: Dispatcher [employer] Malka Pitts RN RN aa5 Taty De León RN RN ss Callum Parker, IMMIGRATION COORDINATOR-C IMMIGRATION COORDINATOR-Cdr5
--- NOTE | 2024-02-13 15:53 | ER ---
Nurse's Notes [facility] Name: Sam Rowell Age: 73 yrs Sex: Male : 1950 Arrival Date: 02/13/2024 Time: : Bed 10 Private MD: Diagnosis: Displaced fracture of distal phalanx of finger Presentation: 02/12 13:43 Chief complaint: Patient states: "I jammed my finger on the car door 3 weeks ago but aa5 it's not looking good now". Coronavirus screen: At this time, the client does not indicate any symptoms associated with coronavirus-19. Ebola Screen: Patient denies travel to an Ebola-affected area in the 21 days before illness onset. Initial Sepsis Screen: Does the patient meet any 2 criteria? No. Patient's initial sepsis screen is negative. Does the patient have a suspected source of infection? No. Patient's initial sepsis screen is negative. Risk Assessment: Do you want to hurt yourself or someone else? Patient reports no desire to harm self or others. Onset of symptoms was January 2024. 13:43 Acuity: CAITLYN 4 aa5 13:43 Method Of Arrival: Ambulatory aa5 Historical: - Allergies: 13:44 No Known Allergies; aa5 - PMHx: 13:44 Hyperlipidemia; Hypertension; Myocardial infarction; Stomach Cancer; Carcinoma; aa5 Prostate Cancer; - PSHx: 13:44 carcinoma removed; prostectomy; heart stents; hernia repair; Appendectomy; septo aa5 plasty; Tonsillectomy; Left knee replacement; Coronary Double Bypass; - Immunization history:: Adult Immunizations unknown. - Infectious Disease History:: Denies. - Social history:: Smoking status: Patient denies any tobacco usage or history of. Screenin:43 Abuse screen: Denies threats or abuse. Denies injuries from another. Nutritional ss screening: No deficits noted. Tuberculosis screening: Never had TB. Assessment: 14:43 General: Appears in no apparent distress. comfortable, Behavior is calm, cooperative. ss Pain: Complains of pain in dorsal aspect of distal phalanx of left little finger. Neuro: Level of Consciousness is awake, alert, obeys commands, Oriented to person, place, time, situation. Respiratory: Airway is patent Respiratory effort is even, unlabored, Respiratory pattern is regular, symmetrical. Derm: Skin is intact, is healthy with good turgor, Skin is pink, warm \\T\\ dry. normal. Vital Signs: 13:43 BP 133 / 78; Pulse 66; Resp 18 S; Temp 97.8(TE); Pulse Ox 99% on R/A; Weight 96.16 kg aa5 (R); Height 6 ft. 0 in. (R); 13:43 Body Mass Index 28.75 (96.16 kg, 182.88 cm) aa5 ED Course: 13:33 Patient arrived in ED. ra3 13:43 Arm band placed on. aa5 13:44 Triage completed. aa5 13:45 Callum Parker FNP-C [facility]. dr5 13:46 George Wang MD is Attending Physician. dr5 14:12 Taty De León, ELIAN is Primary Nurse. ss 14:41 Hand Left 3 View XRAY In Process Unspecified. EDMS 14:43 Patient has correct armband on for positive identification. ss 16:08 No provider procedures requiring assistance completed. Patient did not have IV access ss during this emergency room visit. Aluminum finger splint applied to dorsal aspect of distal phalanx of left little finger. Administered Medications: 14:15 Drug: Boostrix Tdap IM 0.5 ml IM once; as a single dose {Note: 7445J.} Route: IM; Site: ss right deltoid; 16:08 Follow up: Response: No adverse reaction ss Medication: 14:45 Vaccine Information Statement (VIS) provided today. Questions and/or concerns ss addressed. VIS edition date: November 2020. Outcome: 15:52 Discharge ordered by MD. dr5 16:08 Discharged to home ambulatory, ss 16:08 Condition: good 16:08 Discharge instructions given to patient, Instructed on discharge instructions, follow up and referral plans. medication usage, Demonstrated understanding of instructions, follow-up care, medications, Prescriptions given X 1, 16:09 Patient left the ED. ss Signatures: Dispatcher [employer] EDMS Malka Mckeon RN RN aa5 Taty De León, ELIAN RN Solange Hart ra3 Callum Parker FNP-C ACADEMIC VICE PRESIDENT-Cdr5 Corrections: (The following items were deleted from the chart) 13:50 13:43 BP 133 / 78; Pulse 66bpm; Resp 18bpm; Spontaneous; Pulse Ox 99% RA; Temp 97.8F aa5 Temporal; aa5 14:46 14:43 VIS not applicable for this client. ss ss
[2024-02-14 02:25] VITALS: BP 133/78; TEMP 97.8; O2SAT 99
== END 2024-02-13 16:09 | disposition home or self-care (01) ==
LOC: ER 13:26
PROC: 2W3KX1Z Immobilization of Left Finger using Splint (ICD-10-PCS; principal; 2024-02-13)
DX: S62.637A Displaced fracture of distal phalanx of left little finger, initial encounter for closed fracture (principal)
CPT/HCPCS: 96372; 99284